=== PATIENT | female | born 1990 | race Caucasian/White ===

== ENCOUNTER 2018-12-06 14:01 | Emergency (ER) | payer OTHER ==
[2018-12-06 15:08] LABS: ABS Lymphocytes 1.2 10^3/ul (1.0-4.8); ABS Monocytes 0.2 10^3/ul (0-0.8); ABS Neutrophils 5.4 10^3/ul (1.5-7.7); Eosinophil % 0.1 %; Hematocrit 36 % (35-47); Hemoglobin 12.7 g/dL (12.0-16.0); Lymphocyte % 17.3 %; Mean Corpuscular HGB Conc 35 g/dL (31-36); Mean Corpuscular Hemoglobin 31 pg (27-31); Mean Corpuscular Volume 90 fL (80-97); Mean Platelet Volume 7.2 fL (7.4-10.4); Nucleated Red Blood Cells % 0.1; Platelet Count 256 10^3/uL (150-450); Red Blood Count 4.04 10^6 /uL (3.70-4.87); Red Cell Distribution Width 12 % (10-15); White Blood Count 6.8 10^3/uL (3.5-10.8)
--- NOTE | 2018-12-06 15:09 | ED ---
GI/ HPI - HPI Summary HPI Summary: 28 year old female presents with intermittent vaginal bleeding for the past week. States she's had an IUD for the past 9 years and has occasional spotting but never this much bleeding. States she is soaking a tampon every 1-2 hours. States pain is intermittent. She admits to abdominal cramping with the bleeding. She also admits to nausea. She had IUD placed 3 years ago. She denies any vomiting. No urinary symptoms. No abnormal vaginal discharge. No diarrhea constipation. Has no medical conditions. - History of Current Complaint Chief Complaint: EDVaginalBleeding Time Seen by Provider: 12/06/18 14:46 Stated Complaint: VAGINAL BLEEDING PER PT Pain Intensity: 3 - Allergy/Home Medications Allergies/Adverse Reactions: Allergies Allergy/AdvReac Type Severity Reaction Status Date / Time No Known Allergies Allergy Verified 12/06/18 14:11 PMH/Surg Hx/FS Hx/Imm Hx Endocrine/Hematology History: Denies: Hx Anticoagulant Therapy Respiratory History: Denies: Hx Asthma Infectious Disease History: No Infectious Disease History: Denies: Traveled Outside the [place] in Last 30 Days - Family History Known Family History: Positive: Non-Contributory - Social History Alcohol Use: Occasionally Substance Use Type: Reports: None Review of Systems Negative: Fever Negative: Chest Pain Negative: Shortness Of Breath Positive: Abdominal Pain, Nausea, Other - vaginal bleeding All Other Systems Reviewed And Are Negative: Yes Physical Exam Triage Information Reviewed: Yes Vital Signs On Initial Exam: Initial Vitals Temp Pulse Resp BP Pulse Ox 99.3 F 66 16 126/66 100 12/06/18 14:08 12/06/18 14:08 12/06/18 14:08 12/06/18 14:08 12/06/18 14:08 Vital Signs Reviewed: Yes Appearance: Positive: Well-Appearing Skin: Positive: Warm, Dry Head/Face: Positive: Normal Head/Face Inspection Eyes: Positive: Normal, Conjunctiva Clear ENT: Positive: Pharynx normal Respiratory/Lung Sounds: Positive: Clear to Auscultation, Breath Sounds Present Cardiovascular: Positive: Normal, RRR Abdomen Description: Positive: Nontender, Soft Bowel Sounds: Positive: Present Musculoskeletal: Positive: Normal Neurological: Positive: Normal Psychiatric: Positive: Normal Diagnostics - Vital Signs Vital Signs Temp Pulse Resp BP Pulse Ox 12/06/18 14:08 99.3 F 66 16 126/66 100 - Laboratory Result Diagrams: 12/06/18 14:58 12/06/18 14:58 Lab Statement: Any lab studies that have been ordered have been reviewed, and results considered in the medical decision making process. - Ultrasound No standard instances Ultrasound Interpretation Completed By: Radiologist Summary of Ultrasound Findings: IMPRESSION: Single intrauterine gestation with a gestational age of 5 weeks 6 days determined by crown-rump length. Estimated date of delivery is August 02, 2019. This appears to be adjacent to an implanted IUD. Re-Evaluation - Re-Evaluation First Eval Re-Evaluation Time: 15:43 Comment: discussed lab work, will give zofran. Second Eval Re-Evaluation Time: 15:59 Comment: hcg came back positive. discussed results with patient. says took test 2 weeks ago and it was negative. Third Eval Re-Evaluation Time: 17:24 Comment: discussed patient states does not want the baby. GIGU Course/Dx - Course Course Of Treatment: 28 year old female presents with intermittent vaginal bleeding for the past week. States she's had an IUD for the past 9 years and has occasional spotting but never this much bleeding. States she is soaking a tampon every 1-2 hours. States pain is intermittent. She admits to abdominal cramping with the bleeding. She also admits to nausea. She had IUD placed 3 years ago. She denies any vomiting. No urinary symptoms. No abnormal vaginal discharge. No diarrhea constipation. Has no medical conditions. On exam nontender abdomen. wbc normal. h/[place] [id number]. ultrasound shows iud and intrauterine . discussed with dr obrien that as patient does not want do not pull IUD and just [facility]. gave zofran for nausea. patient understand and agrees with plan. - Diagnoses Differential Diagnoses - Female: Ovarian Cyst, Urinary Tract Infection, Other - iud displacement Provider Diagnoses: with IUD in place, antepartum Discharge ED - Sign-Out/Discharge Documenting (check all that apply): Patient Departure Patient Received Moderate/Deep Sedation with Procedure: No - Discharge Plan Condition: Good Disposition: HOME Prescriptions: Ondansetron TAB* [Zofran 4 MG Tab*] 4 mg PO Q6H PRN #20 tab PRN Reason: Nausea Referrals: Haley Cedeño NP [Primary Care Provider] - [facility], [Z.CONVERSION PROVIDER TYPE] - Additional Instructions: Take zofran every 6 hours for nausea Eat a small snack throughout the day, drink liquids as tolerated [facility] Return to ED if develop any new or worsening symptoms - Billing Disposition and Condition Condition: GOOD Disposition: Home
[2018-12-06 15:16] LABS: INR 1.06 (0.82-1.09)
[2018-12-06 15:25] LABS: Albumin 4.5 g/dL (3.2-5.2); Albumin/Globulin Ratio 2.1 (1-3); BUN/Creatinine Ratio 7.8 (8-20); Calcium 10.1 mg/dL (8.6-10.3); EGFR African American 135.7 (>60); EGFR Non-African American 112.2 (>60); Globulin 2.1 g/dL (2-4); Potassium 4.3 mmol/L (3.5-5.0); Total Bilirubin 0.8 mg/dL (0.2-1.0); Total Protein 6.6 g/dL (6.4-8.9)
[2018-12-06] MEDS ORDERED: Ondansetron ODT TAB* 4 MG PO ONE (15:37)
[2018-12-06] MEDS ORDERED: O ndansetron ODT 4MG 5TAB PRPK 4 MG PAK PO ONE (17:42)
[2018-12-06 18:06] VITALS: BP 121/66
== END 2018-12-06 18:04 | disposition home or self-care (01) ==
LOC: ED 14:01
DX: O26.30 Retained intrauterine contraceptive device in pregnancy, unspecified trimester (principal); Z3A.00 Weeks of gestation of pregnancy not specified
CPT/HCPCS: 36415; 76817; 80053; 84702; 85025; 85610; 99283; A9270-GY